=== PATIENT | male | born 1935 | race Two or more races ===

== ENCOUNTER 2021-06-20 13:21 | Inpatient (IN) | payer MEDICARE, OTHER ==
[2021-06-20] MEDS ORDERED: VANCOmycin 1 GM/200 ML 1 GM in Premix Bag 1 BAG IV ONE ×2 (18:00→20:00)
[2021-06-20] MEDS: Morphine 2 MG/ML SYRINGE IVPUSH PRN (18:07)
[2021-06-20] MEDS ORDERED: Sodium Chloride 0.9% 10 ML Syringe FLUSH PRN (18:20)
[2021-06-20] MEDS ORDERED: Acetaminophen 325 MG Tab PO PRN ×2 (18:20→18:29)
[2021-06-20] MEDS ORDERED: Ondansetron 4 MG/2 ML SDV IV PRN (18:20)
[2021-06-20] MEDS ORDERED: Albuterol 0.083% 2.5 MG/3 ML Neb Soln NEB PRN (18:29)
[2021-06-20] MEDS ORDERED: 50% Dextrose in Water 50 ML Syringe IVPUSH PRN (18:29)
[2021-06-20] MEDS ORDERED: Glucagon,Human Recombinant 1 MG Vial IM PRN (18:29)
[2021-06-20 18:44] LABS: CHLORIDE,CL 101 mEq/L (98-106); SODIUM,NA 138 mEq/L (136-145)
[2021-06-20] MEDS: Brimonidine 0.2% Ophth Soln 5 ML Bottle EYEBOTH SCH (19:38)
[2021-06-20] MEDS: Hydrocortisone 1% Crm 30 GM Tube TOP SCH (19:38)
[2021-06-20] MEDS ORDERED: atorvaSTATin 20 MG Tab PO SCH (20:00)
[2021-06-20] MEDS ORDERED: Insulin Glarg,Human.Rec.Analog 100 Unit/ML SUBCUT SCH (20:00)
[2021-06-20] MEDS ORDERED: Donepezil 5 MG Tab PO SCH (20:00)
[2021-06-20] MEDS: Clotrimazole 1% Crm 30 GM Tube TOP SCH (20:44)
[2021-06-20] MEDS: Moxifloxacin 0.5% Ophth Soln 3 ML Bottle EYERT SCH (20:45)
[2021-06-21 07:40] LABS: CHLORIDE,CL 103 mEq/L (98-106); SODIUM,NA 138 mEq/L (136-145)
[2021-06-21] MEDS: Hydrocortisone 1% Crm 30 GM Tube TOP SCH (07:48)
[2021-06-21] MEDS: metFORMIN 500 MG Tab PO SCH ×2 (07:49→16:55)
[2021-06-21] MEDS: Brimonidine 0.2% Ophth Soln 5 ML Bottle EYEBOTH SCH ×2 (07:50→14:00)
[2021-06-21] MEDS ORDERED: Polyvinyl Alcohol 1.4% Ophth Soln 15 ML Bottle EYEBOTH SCH (08:00)
[2021-06-21] MEDS ORDERED: Tobramycin 0.3% Ophth Drops 5 ML Bottle EYERT SCH (08:00)
[2021-06-21] MEDS ORDERED: Tamsulosin 0.4 MG Cap.ER PO SCH (08:00)
[2021-06-21] MEDS ORDERED: Aspirin 81 MG Tab.Chew PO SCH (08:00)
[2021-06-21] MEDS ORDERED: Clotrimazole 1% Crm 30 GM Tube TOP PRN (08:53)
[2021-06-21] MEDS: Clotrimazole 1% Crm 30 GM Tube TOP SCH (09:16)
[2021-06-21] MEDS: Moxifloxacin 0.5% Ophth Soln 3 ML Bottle EYERT SCH ×2 (09:18→14:11)
[2021-06-21 16:06] VITALS: BP 114/63; PULSE 74
[2021-06-21] MEDS: Morphine 2 MG/ML SYRINGE IVPUSH PRN (16:46)
[2021-06-21] MEDS ORDERED: VANCOmycin 1 GM/200 ML 1 GM in Premix Bag 1 BAG IV SCH (20:00)
== END 2021-06-21 18:10 | DRG 638 ==
LOC: CC.FCMC 13:21 → CC.MS 13:21 → UNDOADMIN 14:13 → CC.MS 18:20
PROVIDERS: ADMIT Family Medicine; ATTEND Nurse Practitioner Family
DX: E11.69 Type 2 diabetes mellitus with other specified complication (principal); M86.142 Other acute osteomyelitis, left hand; H91.90 Unspecified hearing loss, unspecified ear; H54.7 Unspecified visual loss; E78.00 Pure hypercholesterolemia, unspecified; I25.10 Atherosclerotic heart disease of native coronary artery without angina pectoris; K59.09 Other constipation; I73.9 Peripheral vascular disease, unspecified; H54.40 Blindness, one eye, unspecified eye; I11.0 Hypertensive heart disease with heart failure; I50.9 Heart failure, unspecified; E11.51 Type 2 diabetes mellitus with diabetic peripheral angiopathy without gangrene; Z91.040 Latex allergy status; Z79.82 Long term (current) use of aspirin; Z79.4 Long term (current) use of insulin; Z79.899 Other long term (current) drug therapy; I25.2 Old myocardial infarction; Z95.5 Presence of coronary angioplasty implant and graft; L08.9 Local infection of the skin and subcutaneous tissue, unspecified
CPT/HCPCS: 36415; 73130-LT; 73201-LT; 80053; 82947; 85025; 86140; 99223; 99239; A9270-GY; J1815-GY; J2270; J3370

== ENCOUNTER 2021-11-30 10:05 | Emergency (ER) | payer MEDICARE, OTHER ==
[2021-11-30] MEDS ORDERED: Diphtheria,Pertussis(Acell),Tetanus Vaccine 0.5 ML Syringe IM ONE (10:50)
[2021-12-27 13:01] LABS: CHLORIDE,CL 106 mEq/L (98-106); SODIUM,NA 140 mEq/L (136-145)
[2021-12-27 13:02] LABS: ESTIMATED GFR 84 mL/min (>=60)
[2021-12-27 13:05] LABS: PTT,PARTIAL THROMBOPLSTIN TIME 24.3 SEC (20.0-29.0)
== END 2021-11-30 11:00 | disposition critical access hospital (66) ==
LOC: CC.ED 10:05
DX: S01.81XA Laceration without foreign body of other part of head, initial encounter (principal); I25.10 Atherosclerotic heart disease of native coronary artery without angina pectoris; M25.511 Pain in right shoulder; E11.9 Type 2 diabetes mellitus without complications; Z23 Encounter for immunization; W18.39XA Other fall on same level, initial encounter
CPT/HCPCS: 36415; 80053; 85025; 85610; 85730; 90471; 90715; 99285-25

== ENCOUNTER 2024-01-08 09:50 | Day surgery (SDC) | payer MEDICARE ==
[2024-01-08] MEDS ORDERED: 50% Dextrose in Water 50 ML Syringe ONE (10:51)
[2024-01-08] MEDS: 50% Dextrose in Water 50 ML Syringe IVPUSH ONE (10:52)
[2024-01-08] MEDS: Lactated Ringers 1,000 ML IV SCH (11:01)
[2024-01-08] MEDS ORDERED: fentaNYL 50 MCG/ML SDV ONE (11:05)
[2024-01-08] MEDS ORDERED: Midazolam 1 MG/ML 2 ML SDV ONE (11:05)
[2024-01-08] MEDS ORDERED: Ketamine 200 MG/20 ML MDV ONE (11:05)
[2024-01-08] MEDS ORDERED: Lidocaine 2% 20 ML MDV ONE (11:05)
[2024-01-08] MEDS ORDERED: Flumazenil 0.1 MG/ML 5 ML MDV ONE (11:05)
[2024-01-08] MEDS ORDERED: Lidocaine 2% 5 ML SDV ONE (11:07)
[2024-01-08 15:43] VITALS: BP 164/71; PULSE 64
== END 2024-01-08 14:10 | disposition home or self-care (01) ==
LOC: CC.SDS 09:50
PROVIDERS: ATTEND Surgery
DX: M86.642 Other chronic osteomyelitis, left hand (principal); E78.5 Hyperlipidemia, unspecified; N40.0 Benign prostatic hyperplasia without lower urinary tract symptoms; E11.9 Type 2 diabetes mellitus without complications; Z79.899 Other long term (current) drug therapy
CPT/HCPCS: 01830; 99100; J2250; J3010; J3490; J7120

== ENCOUNTER 2024-08-13 05:49 | Emergency (ER) | payer MEDICARE ==
[2024-08-13 06:16] LABS: BASOPHILS ABSOLUTE AUTO 0.05 10^3/uL (0.00-0.50); BASOPHILS PERCENT AUTO 0.7 % (0-1); EOSINOPHILS ABSOLUTE AUTO 0.52 10^3/uL (0.00-1.50); EOSINOPHILS PERCENT AUTO 7.3 % (0-6); HEMATOCRIT 34.7 % (42.0-52.0); HEMOGLOBIN 10.7 g/dL (14.0-18.0); IMMATURE GRAN ABSOLUTE AUTO 0.01 10^3/uL (0.00-0.49); IMMATURE GRAN PERCENT AUTO 0.1 % (0.0-4.9); LYMPHOCYTES ABSOLUTE AUTO 2.06 10^3/uL (0.60-5.00); LYMPHOCYTES PERCENT AUTO 28.7 % (24-44); MEAN CORPUSCULAR HEMOGLOBIN 25.9 pg (27.0-32.0); MEAN CORPUSCULAR HGB CONC 30.8 g/dL (32.0-36.0); MONOCYTES ABSOLUTE AUTO 0.42 10^3/uL (0.00-1.50); MONOCYTES PERCENT AUTO 5.9 % (0-10); NEUTROPHILS ABSOLUTE AUTO 4.11 x10^3/uL (1.80-8.00); NEUTROPHILS PERCENT AUTO 57.3 % (41-71); PLATELET COUNT,PLT 248 10^3/uL (150-400); RED BLOOD CELL COUNT 4.13 x10^6/uL (4.50-6.00); WHITE BLOOD CELL COUNT,WBC 7.2 10^3/uL (4.0-11.0)
[2024-08-13 06:24] LABS: CALCIUM 8.9 mg/dL (8.4-10.1); CREATININE 0.9 mg/dL (0.7-1.3); EST CRCL DRUG DOSING (CG) 54.06 mL/min; POTASSIUM,K 4.5 mEq/L (3.5-5.0)
[2024-08-13 06:38] LABS: INR 0.91 (0.92-1.18); PROTHROMBIN TIME 9.6 SEC (9.3-11.3); PTT,PARTIAL THROMBOPLSTIN TIME 25.8 SEC (20.0-30.0)
[2024-08-13] MEDS: Sodium Chloride 0.9% 1,000 ML ONE (06:42)
[2024-08-13 06:58] LABS: APPEARANCE,URINE CLEAR (CLEAR); BILIRUBIN,URINE NEGATIVE (NEGATIVE); COLOR,URINE YELLOW (YELLOW); GLUCOSE,URINE 100 mg/dL (NEGATIVE); KETONES,URINE NEGATIVE (NEGATIVE); LEUKOCYTE ESTERASE,URINE NEGATIVE (NEGATIVE); NITRITE,URINE NEGATIVE (NEGATIVE); OCCULT BLOOD,URINE NEGATIVE (NEGATIVE); PH,URINE 5.5 (4.5-8.0); PROTEIN,URINE NEGATIVE (NEGATIVE); UROBILINOGEN,URINE 0.2 EU/dL (0.2-1.0)
[2024-08-13] MEDS: Sodium Chloride 0.9% 300 ML IV ONE (07:00)
[2024-08-13 08:12] VITALS: BP 109/50; PULSE 79
== END 2024-08-13 07:25 | disposition home or self-care (01) ==
LOC: CC.ED 05:49
DX: R40.4 Transient alteration of awareness (principal); I25.10 Atherosclerotic heart disease of native coronary artery without angina pectoris; I25.2 Old myocardial infarction; I11.0 Hypertensive heart disease with heart failure; I50.9 Heart failure, unspecified; E78.00 Pure hypercholesterolemia, unspecified; M19.90 Unspecified osteoarthritis, unspecified site; Z86.16 Personal history of COVID-19; Z91.040 Latex allergy status; Z79.82 Long term (current) use of aspirin; Z79.4 Long term (current) use of insulin; Z79.84 Long term (current) use of oral hypoglycemic drugs; Z79.899 Other long term (current) drug therapy
CPT/HCPCS: 36415; 70450; 71045; 80048; 81003; 82550; 83605; 85025; 85610; 85730; 87040; 96360; 99285-25; J7030